=== PATIENT | female | born 1990 | race Caucasian/White ===

== ENCOUNTER 2017-03-03 20:36 | Outpatient (CLI) | payer OTHER ==
[~2017-03-03 20:36] MED LIST: BUTA1CAP38 PO; CALC600T5 PO; DOCO100C PO; IRON45TA2 PO; PREN1TAB17 PO; RANI25TA PO
--- NOTE | 2017-03-03 23:38 | RADRPT ---
PROCEDURE: Obstetrical ultrasound, limited. CLINICAL INDICATION: Pelvic pain. TECHNIQUE: Multiple sonographic images of the pelvis were obtained using transabdominal technique . Images were obtained with degroot scale and color Doppler. Transvaginal evaluation of the cervix was also performed. The images were reviewed on a PACS workstation. COMPARISON: 12/20/2016. FINDINGS: There is a single living intrauterine gestation with the fetus in a vertex presentation. hear t tones of 143 beats per minute are identified. The placenta is anterior in location, grade 1. The cervix is closed measuring 3.6 cm. IMPRESSION: Single viable intrauterine gestation. Cervical length of 3.6 cm. .Shon Ruvalcaba MD, Date Time Electronically viewed and signed by .Shon Ruvalcaba MD, MD on 03/03/2017 23:38 .T/
--- NOTE | 2017-03-04 00:21 | PN ---
Triage Information Date/Time Reason for visit: abdominal pressure x2wks with slight increase in sxs after 3yr-old's toy hit her abdomen Weeks of Gestation 32+2 /Para 2/1 Diabetes: none Hypertention: none Additional information Pt reports normal FM, denies LOF, VB or UCs Objective Heart Rate: 120's Heart Rate Comments mod jairon, +accels, no decels Contractions: >10 Minutes Apart (2UCs during monitoring) Exam Gen: pt well appearing, NAD Abd: soft, gravid, NT, no bruising or lesions noted Results/Medications Imaging Results PROCEDURE: Obstetrical ultrasound, limited. CLINICAL INDICATION: Pelvic pain. TECHNIQUE: Multiple sonographic images of the pelvis were obtained using transabdominal technique. Images were obtained with degroot scale and color Doppler. Transvaginal evaluation of the cervix was also performed. The images were reviewed on a PACS workstation. COMPARISON: 12/20/2016. FINDINGS: There is a single living intrauterine gestation with the fetus in a vertex presentation. heart tones of 143 beats per minute are identified. The placenta is anterior in location, grade 1. The cervix is closed measuring 3.6 cm. IMPRESSION: Single viable intrauterine gestation. Cervical length of 3.6 cm. PROCEDURE: Obstetrical ultrasound, limited. CLINICAL INDICATION: Injury and pain. TECHNIQUE: Multiple sonographic images of the pelvis were obtained using transabdominal technique. Images were obtained with degroot scale and color Doppler. The images were reviewed on a PACS workstation. COMPARISON: 03/03/2017. FINDINGS: There is a single intrauterine gestation. The placenta is anterior in location , grade 1. There is no evidence of placental abruption. IMPRESSION: No evidence of placental abruption. Disposition: Discharge Assessment/Plan MIld abdominal trauma w/o e/o PTL NST reactive TVCL >3cm Largely acontractile on toco with isolated contractions x2 U/S results d/w Dr. Quintana by fish cake maker and given d/c order Pt appropriate for d/c home Strict PTL, PPROM and FKC precautions reviewed Pt to f/up as scheduled with SHABNAM Flores MD Mar 04, 2017 00:21
--- NOTE | 2017-03-04 00:40 | RADRPT ---
PROCEDURE: Obstetrical ultrasound, limited. CLINICAL INDICATION: Injury and pain. TECHNIQUE: Multiple sonographic images of the pelvis were obtained using transabdominal technique . Images were obtained with degroot scale and color Doppler. [facility] COMPARISON: 03/03/2017. FINDINGS: There is a single intrauterine gestation. The placenta is anterior in location, grade 1. There is no evidence of placental abruption. IMPRESSION: No evidence of placental abruption. .Shon Ruvalcaba MD, Date Time Electronically viewed and signed by .Shon Ruvalcaba MD, MD on 03/04/2017 00:39 .T/
--- NOTE | 2017-03-04 01:46 | TRIAGE ---
OB Triage Datetime Report Generated by CPN: 03/04/2017 01:46 Datetime: 03/04/2017 00:27 Stage of : OB Triage Labor Evaluation Frequency: 0 Monitor Mode: External Resting Tone [place]: Relaxed Heart Rate FHR Baseline Rate: 120 Monitor Mode: External US Variability: Moderate 6-25 bpm Accelerations: 15X15 Decelerations: None Category: Category I Datetime: 03/04/2017 00:13 Stage of : OB Triage Datetime: 03/03/2017 23:45 Stage of : OB Triage Datetime: 03/03/2017 23:16 Stage of : OB Triage Monitor Mode: External Monitor Mode: External US Datetime: 03/03/2017 23:10 Stage of : OB Triage Datetime: 03/03/2017 22:43 Stage of : OB Triage Datetime: 03/03/2017 22:37 Stage of : OB Triage Labor Evaluation Frequency: X2 Monitor Mode: External Duration (sec)2399: 70-140 Quality: Mild Resting Tone [place]: Relaxed Heart Rate FHR Baseline Rate: 120 Monitor Mode: External US Variability: Moderate 6-25 bpm Accelerations: 15X15 Decelerations: None Category: Category I Datetime: 03/03/2017 22:11 Stage of : OB Triage Datetime: 03/03/2017 22:00 Stage of : OB Triage Labor Evaluation Frequency: 0 Monitor Mode: External Resting Tone [place]: Relaxed Heart Rate FHR Baseline Rate: 120 Monitor Mode: External US Variability: Moderate 6-25 bpm Accelerations: 15X15 Decelerations: None Category: Category I Datetime: 03/03/2017 21:37 Stage of : OB Triage Datetime: 03/03/2017 21:02 Assessment Type: Triage Maternal Assessment Level of Consciousness: Fully Conscious Headache: Denies Blurred Vision: No Respiratory Effort: Unlabored Breath Sounds, Left: Clear and Equal Breath Sounds, Right: Clear and Equal Nausea/Vomiting: Denies RUQ Epigastric Pain: Denies Lower Extremities Edema: None Degree: None Upper Extremities Edema: None Degree: None Facial Edema: None Fall Risk Assessment History of Falling: (0) No Secondary Diagnosis: (0) No Ambulatory Aid: (0) Bedrest/Nurse Assist IV Therapy: (0) No Gait: (0) Normal/Bedrest/Immobile Mental Status: (0) Oriented to Own Ability Fall Score: 0 Fall Risk Score Definition: No Risk: No action required Datetime: 03/03/2017 21:00 Time of Arrival: 03/03/2017 20:24 EGA: 32.2 Arrived By: Wheelchair Arrived From: Home Chief Complaint: Abd pain rt toddler jumped on her Movement: Present Rupture of Membranes: Denies Vaginal Bleeding: Scant Vaginal Discharge: Denies Recent Sexual Intercouse: Denies Abdominal Trauma: Not Applicable Patient Complaints: Other Additional Patient Complaints: Pt states she had placenta previa in December that was resolved by 01/13 0 Initial Plan: VS, EFM, placenta, cl, nst Datetime: 03/03/2017 20:53 Stage of : OB Triage Monitor Mode: External Contraction Comments: APPLIED Monitor Mode: External US Comments: APPLIED Datetime: 12/20/2016 11:30 Stage of : OB Triage Datetime: 12/20/2016 11:00 Stage of : OB Triage Maternal Assessment Level of Consciousness: Fully Conscious Headache: Generalized Nausea/Vomiting: Denies RUQ Epigastric Pain: Denies Labor Evaluation Frequency: IRRITABILITIES Monitor Mode: External Duration (sec)2399: 10 Quality: Mild Resting Tone [place]: Relaxed Pain Assessment Pain Scale: 3 Pain Presence: Constant Pain Type: Cramping; Pressure Pain Location: Abdomen Pain Goal: 2 Datetime: 12/20/2016 10:00 Stage of : OB Triage Maternal Assessment Level of Consciousness: Fully Conscious Headache: Generalized Nausea/Vomiting: Denies RUQ Epigastric Pain: Denies Labor Evaluation Frequency: IRRITABILITIES Monitor Mode: External Duration (sec)2399: 10 Quality: Mild Resting Tone [place]: Relaxed Pain Assessment Pain Scale: 5 Pain Presence: Constant Pain Type: Cramping; Pressure Pain Location: Abdomen (Annotations: BOTH SIDES OF ABDOMEN) Pain Relief Measures: Pain Medication Given (Annotations: GIVEN TYL 1 GM F`OR HEADACHE CAUSED BY S INUS ALLERGY /PT LEFT HER FIORICET AT HOME) Datetime: 12/20/2016 09:00 Stage of : OB Triage Maternal Assessment Level of Consciousness: Fully Conscious Headache: Denies Nausea/Vomiting: Denies RUQ Epigastric Pain: Denies Labor Evaluation Frequency: cramping mild Monitor Mode: External Duration (sec)2399: 10 Quality: Mild Resting Tone [place]: Relaxed Pain Assessment Pain Scale: 5 Pain Presence: Constant Pain Type: Cramping; Pressure Pain Location: PT POITS TO BOTH SIDES OF ABDOMEN Datetime: 12/20/2016 08:08 Stage of : OB Triage Maternal Assessment Level of Consciousness: Fully Conscious DTR's/Clonus: DTRs 2+; No Clonus Headache: Denies Blurred Vision: No Respiratory Effort: Unlabored; Regular Rhythm; Equal Expansion Breath Sounds, Left: Clear and Equal Breath Sounds, Right: Clear and Equal Nausea/Vomiting: Denies RUQ Epigastric Pain: Denies Lower Extremities Edema: None Degree: None Upper Extremities Edema: None Degree: None Facial Edema: None Temperature Route: Axillary Fall Risk Assessment History of Falling: (0) No Secondary Diagnosis: (0) No Ambulatory Aid: (0) Bedrest/Nurse Assist IV Therapy: (0) No Gait: (0) Normal/Bedrest/Immobile Mental Status: (0) Oriented to Own Ability Fall Score: 0 Fall Risk Score Definition: No Risk: No action required Labor Evaluation Frequency: cramping mild Monitor Mode: External Heart Rate FHR Baseline Rate: 136 Monitor Mode: External US Pain Assessment Pain Scale: 5 Pain Presence: Constant Pain Type: Cramping; Pressure Pain Location: both groin area and lower abd pain Datetime: 12/20/2016 08:07 EGA: 21.6 Datetime: 12/20/2016 08:05 Time of Arrival: 12/20/2016 08:05 Arrived By: Ambulatory Arrived From: Home Chief Complaint: spottin started at 0600 Movement: Present Rupture of Membranes: Denies Vaginal Discharge: Denies Recent Sexual Intercouse: Denies Abdominal Trauma: Not Applicable Time Provider Notified: 12/20/2016 08:24 Provider Notified: wilder Initial Plan: josee
== END 2017-03-04 01:08 | disposition home or self-care (01) ==
LOC: OBT 20:36 → L-D 20:39 → OBT 03-04 01:08
PROVIDERS: ATTEND Obstetrics & Gynecology
DX: O26.893 Other specified pregnancy related conditions, third trimester (principal); Z3A.32 32 weeks gestation of pregnancy
CPT/HCPCS: 76815; 76817; G0463

== ENCOUNTER 2017-04-02 19:00 | Outpatient (CLI) | payer OTHER ==
[~2017-04-02 19:00] MED LIST changes: -BUTA1CAP38 PO; -DOCO100C PO; -IRON45TA2 PO; -RANI25TA PO
--- NOTE | 2017-04-02 20:30 | RADRPT ---
PROCEDURE: US OB. CLINICAL INDICATION: Abdominal pain. TECHNIQUE: Multiple sonographic images of the pelvis were obtained. The images were reviewed on a PACS workstation. COMPARISON: 03/04/2017 and 03/03/2017 FINDINGS: There is a single viable intrauterine gestation. Cardiac activity is present with 113 beats per min phil. Measurements were made in order to determine age. The results are as follows: BPD =9.3 cm HC =33.4 cm AC =32.1 cm FL =7.4 cm. Estimated gestational age of approximately 37 weeks and 3 days. The estimated date of delivery is 04/20/2017. The EFW = 30 59 g . Limited by positioning. Visualized structures are normal. The placenta is anterior. There is no evidence for an abruption or placenta previa. IMPRESSION: Single viable intrauterine gestation of approximately 37 weeks and 3 days. RPTAT:AAJJ Physician Omar Date Time Electronically viewed and signed by Physician Omar on 04/02/2017 20:30 /
--- NOTE | 2017-04-02 20:31 | RADRPT ---
PROCEDURE: US OB biophysical profile. CLINICAL INDICATION: Abdominal pain TECHNIQUE: Multiple sonographic images of the pelvis were obtained. The images were reviewed on a PACS workstation. COMPARISON: 03/04/2017, 03/03/2017 FINDINGS: There is a viable intrauterine gestation. There is a normal amount of amniotic fluid with an MILLICENT = 19.0 cm. Cardiac activity is present with 132 beats per minute. The placenta is anterior. No evidence of placenta previa or abruption. Biophysical profile: movement 2/2 tone 2/2. breathing 2/2 MILLICENT 2/2 Total 01/20 IMPRESSION: Normal biophysical profile. RPTAT:AAJJ Physician Omar Date Time Electronically viewed and signed by Physician Omar on 04/02/2017 20:31 /
--- NOTE | 2017-04-02 21:14 | PN ---
Triage Information Date/Time April 02, 2017. Reason for visit: DFM Weeks of Gestation 36w 4d /Para 2/1 Diabetes: none Hypertention: none Additional information PMHx: none. PSHx: none. NKDA. Objective T=98 BP 106/61 Heart Rate: 120's Heart Rate Comments Accels to 145 bpm. No decels. Contractions: >10 Minutes Apart Exam 30%/FT/-3 Results/Medications Imaging Results BPP 8/8 with an MILLICENT of 19.0 VTX. EFW 3059 grams. Anterior placenta. Disposition: Discharge Assessment/Plan A: IUP at 36w 4d. Decreased movement. False labor. P: D/C home. Keep appt with Dr Quintana 04/09, as scheduled. MENDEZ ABREU MD Apr 02, 2017 21:14
[2017-04-02 21:17] LABS: ADD UMIC NO; UR ASCORBIC ACID NEGATIVE (NEGATIVE); UR BILIRUBIN (Dip) NEGATIVE (NEGATIVE); UR BLOOD (Dip) NEGATIVE (NEGATIVE); UR CLARITY CLEAR (CLEAR); UR COLOR YELLOW (YELLOW); UR GLUCOSE (Dip) NEGATIVE (NEGATIVE); UR KETONES (Dip) NEGATIVE (NEGATIVE); UR LEUKOCYTE ESTERASE (Dip) NEGATIVE Leu/ul (NEGATIVE); UR NITRITE (Dip) NEGATIVE (NEGATIVE); UR SPECIFIC GRAVITY (Dip) 1.024 (1.003-1.030); UR TOTAL PROTEIN (Dip) NEGATIVE (NEGATIVE); UR UROBILINOGEN (Dip) NEGATIVE (NEGATIVE)
--- NOTE | 2017-04-02 21:53 | TRIAGE ---
OB Triage Datetime Report Generated by CPN: 04/02/2017 21:53 Datetime: 04/02/2017 20:43 Stage of : OB Triage Labor Evaluation Frequency: 30 Monitor Mode: External Duration (sec)2399: 60 Quality: Mild Pattern: Normal: <= 5 Contractions in 10 Minutes Resting Tone [place]: Relaxed Heart Rate FHR Baseline Rate: 125 Monitor Mode: External US FHR Baseline Changes: No Baseline Change Variability: Moderate 6-25 bpm Accelerations: 15X15 Decelerations: None Category: Category I Pain Presence: Intermittent Pain Type: Contraction Pain Location: Abdomen Vaginal Exam Dilatation (cms): 0.5 Effacement (%): 30 Station: -3 Exam By: Julio Villagran Membrane Status: Intact Vaginal Bleeding: None Cervix, Consistency: Soft Cervix, Position: Posterior Presentation 'A': Cephalic Datetime: 04/02/2017 19:32 Stage of : OB Triage Monitor Mode: External Pattern: Normal: <= 5 Contractions in 10 Minutes Resting Tone [place]: Relaxed Heart Rate FHR Baseline Rate: 135 Monitor Mode: External US Pain Assessment Pain Scale: 4 Pain Presence: Intermittent Pain Type: Cramping Pain Location: Abdomen Datetime: 04/02/2017 19:13 Stage of : OB Triage Assessment Type: Triage Maternal Assessment Level of Consciousness: Fully Conscious DTR's/Clonus: DTRs 2+; No Clonus Headache: Denies Blurred Vision: No Respiratory Effort: Unlabored; Regular Rhythm; Equal Expansion Breath Sounds, Left: Clear and Equal Breath Sounds, Right: Clear and Equal Nausea/Vomiting: Denies RUQ Epigastric Pain: Denies Lower Extremities Edema: Bilateral Lower Extremities Degree: 1+ Upper Extremities Edema: None Facial Edema: None Temperature Route: Axillary Fall Risk Assessment History of Falling: (0) No Secondary Diagnosis: (0) No Ambulatory Aid: (0) Bedrest/Nurse Assist IV Therapy: (0) No Gait: (0) Normal/Bedrest/Immobile Mental Status: (0) Oriented to Own Ability Fall Score: 0 Fall Risk Score Definition: No Risk: No action required Labor Evaluation Frequency: 0 Monitor Mode: External Resting Tone [place]: Relaxed Monitor Mode: External US Pain Assessment Pain Scale: 4 Pain Presence: Intermittent Pain Type: Cramping; Contraction Pain Location: Abdomen Pain Goal: 3 Pain Relief Measures: Comfort Measures Datetime: 04/02/2017 19:10 Time of Arrival: 04/02/2017 19:00 EGA: 36.4 Arrived By: Ambulatory Arrived From: Office Chief Complaint: SENT FROM OFFICE FOR EVALUATION OF UC/S, DFM. BPP/EFW ORDERED. SPOTTING, DENIES L EAKING, UC'S Q MIN Movement: Decreased Contractions: Irregular Contractions: 5-10 Rupture of Membranes: Denies Vaginal Discharge: Present Recent Sexual Intercouse: Denies Abdominal Trauma: Not Applicable Time Provider Notified: 04/02/2017 20:52 Provider Notified: Dr Quintana Initial Plan: MONITOR, BPPEFW Datetime: 03/03/2017 21:02 Fall Score: 0 Fall Risk Score Definition: No Risk: No action required Datetime: 03/03/2017 21:00 EGA: 32.2 Datetime: 12/20/2016 08:08 Fall Score: 0 Fall Risk Score Definition: No Risk: No action required Datetime: 12/20/2016 08:07 EGA: 21.6
== END 2017-04-02 21:22 | disposition home or self-care (01) ==
LOC: OBT 19:00 → L-D 19:01 → OBT 21:22
PROVIDERS: ATTEND Obstetrics & Gynecology
DX: O36.8130 Decreased fetal movements, third trimester, not applicable or unspecified (principal); O60.03 Preterm labor without delivery, third trimester; Z3A.36 36 weeks gestation of pregnancy
CPT/HCPCS: 76815; 76818; 81003; Z7500; G0463

== ENCOUNTER 2017-04-09 09:31 | Outpatient (CLI) | payer OTHER ==
[~2017-04-09] VITALS: Ht 162.6 cm; Wt 86.4 kg
[2017-04-09 10:08] VITALS: Ht 162.6 cm; Wt 86.4 kg
[2017-04-09] MEDS ORDERED: FERR325T5 PO (10:08)
[2017-04-09] MEDS ORDERED: MAGN400T27 PO (10:08)
[2017-04-09] MEDS ORDERED: DOXY25TA33 PO (10:08)
[2017-04-09 10:09] VITALS: BP 106/68; PULSE 97; RESP 18
--- NOTE | 2017-04-09 10:49 | RADRPT ---
PROCEDURE: OB ultrasound for biophysical profile CLINICAL INDICATION: Decreased movement TECHNIQUE: Multiple sonographic images of the pelvis were obtained. Transabdominal views of the g ravid uterus are available for review. The images were reviewed on a PACS workstation. COMPARISON: Biophysical profile dated 04/02/2017 FINDINGS: breathing movement = 2/2 tone = 2/2 motion = 2/2 MILLICENT = 2/2 MILLICENT = 17.8 cm Single live intrauterine with cardiac activity of 134 bpm. position is cephal ic. The placenta is anterior. IMPRESSION: 1. Single live intrauterine gestation. 2. Biophysical profile = 01/20. 3. MILLICENT = 17.8 cm. RPTAT: HH .Cookie Aguirre MD, Date Time Electronically viewed and signed by .Cookie Aguirre MD, on 04/09/2017 10:48 .G/
--- NOTE | 2017-04-09 11:21 | TRIAGE ---
OB Triage Datetime Report Generated by CPN: 04/09/2017 11:21 Datetime: 04/09/2017 10:37 Stage of : OB Triage Maternal Assessment Level of Consciousness: Fully Conscious Labor Evaluation Frequency: NONE Monitor Mode: External Resting Tone [place]: Relaxed Heart Rate FHR Baseline Rate: 125 Monitor Mode: External US Variability: Moderate 6-25 bpm Accelerations: 15X15 Decelerations: None Category: Category I Pain Assessment Pain Scale: 0 Pain Goal: 3 Vaginal Exam Membrane Status: Intact Vaginal Bleeding: None Datetime: 04/09/2017 10:02 Time of Arrival: 04/09/2017 09:16 EGA: 37.4 Arrived By: Ambulatory Arrived From: Home Chief Complaint: PT HERE FOR REPEAT NST/BPP FOR DFM Movement: Present Contractions: Denies/Absent Rupture of Membranes: Denies Vaginal Bleeding: None Vaginal Discharge: Denies Recent Sexual Intercouse: Denies Abdominal Trauma: Not Applicable Patient Complaints: None Time Provider Notified: 04/09/2017 11:15 Provider Notified: ABUSLEME Initial Plan: BPP/NST Datetime: 04/09/2017 09:59 Monitor Mode: External Monitor Mode: External US Datetime: 04/02/2017 21:09 Stage of : OB Triage Datetime: 04/02/2017 21:00 Stage of : OB Triage Datetime: 04/02/2017 19:13 Fall Risk Assessment Fall Score: 0 Fall Risk Score Definition: No Risk: No action required Datetime: 04/02/2017 19:10 EGA: 36.4 Datetime: 03/03/2017 21:02 Fall Risk Assessment Fall Score: 0 Fall Risk Score Definition: No Risk: No action required Datetime: 03/03/2017 21:00 EGA: 32.2 Datetime: 12/20/2016 08:08 Fall Risk Assessment Fall Score: 0 Fall Risk Score Definition: No Risk: No action required Datetime: 12/20/2016 08:07 EGA: 21.6
--- NOTE | 2017-04-09 11:43 | CONS ---
Date/Time of Note Date/Time of Note DATE: 04/09/17 TIME: 11:37 Consultation Date/Type/Reason Admit Date/Time April 09, 2017 OB triage consult This patient is 26 years old 2 para 1 living 1 with 1 spontaneous vaginal delivery her estimated date of confinement is April 27, 2017 which makes her 37 weeks and 4 days now. She was sent to the OB triage for evaluation of her due to low movement. On examination she is a well-developed well-nourished lady near- term in no acute distress. Her general vital signs are within normal limits with blood pressure 106/68 pulse rate of 97, respiration 18, temperature 97.8 in the blood oxygen saturation of 98% on room temperature Her lab works in the clinic were mostly within normal limit blood type O+ hepatitis B surface antigen nonreactive HIV nonreactive RPR also nonreactive rubella immune Chlamydia and gonorrhea were negative Constitutional: No chills, No diaphoresis, No disoriented, No febrile, No improved, No no complaints, No other, No poor po, No requiring IVF, No requiring O2 Eyes: No discharge, No no complaints, No other, No pain, No redness, No visual change ENT: No bleeding, No congestion, No discharge, No dysphagia, No no complaints, No other, No pain, No sore throat Respiratory: No cough, No no complaints, No other, No pain, No pleuritic pain, No shortness of breath, No sputum, No wheezing Cardiovascular: No chest pain, No edema, No lightheadedness, No no complaints, No orthopenea, No other, No palpitations, No paroxysmal nocturnal dyspnea Gastrointestinal: No blood, No constipation, No decreased appetite, No diarrhea , No flatus, No nausea, No no complaints, No other, No pain, No passing stool, No vomiting Genitourinary: other (Pelvic examination was not performed due to the fact that she did not have any contractions), No bleeding, No discharge, No dysuria, No flank pain, No hematuria, No no complaints Musculoskeletal: No back pain, No bone/joint pain, No neck pain, No no complaints, No other, No restricted range of motion, No swelling Skin: No bruising, No erythema, No laceration, No no complaints, No other, No pruritis, No rash, No skin lesions Additional Comments On ultrasound study report is a single live intrauterine with cardiac activity 134 bpm position is cephalic and placenta is anterior her biophysical profile was reported 01/20 with amniotic fluid index of 17.8 cm. With these normal finding patient was reassured and was discharged home to be evaluated in manager market 's office and she will most likely return in 1 week to repeat some of the tests that we done today. End of dictation thank you Social History Smoking Status: Never smoker Exam/Review of Systems Vital Signs Vitals Vital Signs Date Time Temp Pulse Resp B/P Pulse Ox O2 Delivery O2 Flow Rate FiO2 04/09/17 10:09 97.8 97 18 106/68 98 Room Air OLU BERNSTEIN MD Apr 09, 2017 11:43
== END 2017-04-09 11:39 | disposition home or self-care (01) ==
LOC: OBT 09:31 → L-D 09:31 → OBT 11:39
PROVIDERS: ATTEND Obstetrics & Gynecology
DX: O36.8130 Decreased fetal movements, third trimester, not applicable or unspecified (principal); Z3A.37 37 weeks gestation of pregnancy
CPT/HCPCS: 76818; Z7500; G0463

== ENCOUNTER 2017-04-13 10:08 | Outpatient (CLI) | payer OTHER ==
[~2017-04-13 10:08] MED LIST changes: -CALC600T5 PO; +DOXY25TA33 PO; +FERR325T5 PO; +MAGN400T27 PO
[2017-04-13 10:55] LABS: BASOPHIL # 0.1 10^3/ul (0.0-0.1); BASOPHILS % 0.6 % (0.0-2.0); EOSINOPHILS # 0.1 10^3/ul (0.0-0.5); EOSINOPHILS % 1.5 % (0.0-7.0); HEMOGLOBIN 13.4 g/dl (12.0-16.0); LYMPHOCYTES # 1.9 10^3/ul (0.8-2.9); LYMPHOCYTES % 22.1 % (15.0-51.0); MEAN CORPUSCULAR HEMOGLOBIN 31.2 pg (29.0-33.0); MEAN CORPUSCULAR HGB CONC 35.3 g/dl (32.0-37.0); MEAN CORPUSCULAR VOLUME 88.4 fl (82.0-101.0); MEAN PLATELET VOLUME 10.8 fl (7.4-10.4); MONOCYTES % 11.1 % (0.0-11.0); NEUTROPHIL # 5.6 10^3/ul (1.6-7.5); NEUTROPHILS % 63.4 % (39.0-77.0); PLATELET COUNT 186 10^3/UL (140-415); RED CELL DISTRIBUTION WIDTH 13.1 % (11.5-14.5); WHITE BLOOD COUNT 8.8 10^3/ul (4.8-10.8)
--- NOTE | 2017-04-13 11:16 | RADRPT ---
PROCEDURE: Right Upper Quadrant Ultrasound. CLINICAL INDICATION: Abdominal pain, TECHNIQUE: Multiple real-time images were acquired of the patient's right upper quadrant abdomen a nd retroperitoneum utilizing a high resolution transducer. COMPARISON: None FINDINGS: The liver measures 14.4 cm, and demonstrates normal echogenicity. The main portal vein is patent wit h proper directional flow. There is no intrahepatic biliary ductal dilatation. The extrahepatic comm on bile duct measures 3 mm. The gallbladder is without stones, wall thickening, or pericholecystic fluid. The visualized pancreas is unremarkable. The right kidney measures 10.9 cm and demonstrates normal echotexture. There is mild right hydroneph rosis.. The visualized abdominal aorta and IVC are grossly unremarkable. IMPRESSION: Mild right hydronephrosis. This may be physiologic due to the gravid uterus. No cholelithiasis or acute cholecystitis. Normal CBD. RPTAT: EE Physician Raj Date Time Electronically viewed and signed by Physician Raj on 04/13/2017 11:15 /
[2017-04-13 11:17] LABS: ALBUMIN 3.1 g/dl (3.3-4.9); ALBUMIN/GLOBULIN RATIO 0.79; BILIRUBIN,INDIRECT 0.5 mg/dl (0-1.1); BILIRUBIN,TOTAL 0.5 mg/dl (0.2-1.3); CALCIUM 9.2 mg/dl (8.4-10.2); CREATININE 0.5 mg/dl (0.44-1.00); URIC ACID 3.4 mg/dl (3.1-7.9)
--- NOTE | 2017-04-13 11:17 | RADRPT ---
PROCEDURE: US OB biophysical profile. CLINICAL INDICATION: evaluation, abdominal pain TECHNIQUE: Multiple sonographic images of the pelvis were obtained. The images were reviewed on a PACS workstation. COMPARISON: No prior studies are available for comparison. FINDINGS: There is a single viable intrauterine gestation. Cardiac activity is present with 131 beats per min phil. There is a vertex presentation. The placenta is anterior. There is no evidence of placental abruption. There is a normal amount of amniotic fluid with an MILLICENT = 14.7 cm. Biophysical profile: movement 2/2 tone 2/2. breathing 2/2 MILLICENT 2/2 Total 01/20 RPTAT: AA . IMPRESSION: Normal biophysical profile. Physician Raj Date Time Electronically viewed and signed by Physician Raj on 04/13/2017 11:16 RA/
[2017-04-13 11:19] LABS: INR 0.96; PROTIME 12.8 Sec (12.2-14.2)
[2017-04-13 11:20] LABS: PARTIAL THROMBOPLASTIN TIME 31.5 Sec (25.0-35.0)
[2017-04-13 11:49] LABS: SCRET 0.5 mg/dl (0.44-1.00)
--- NOTE | 2017-04-13 14:26 | TRIAGE ---
OB Triage Datetime Report Generated by CPN: 04/13/2017 14:26 Datetime: 04/13/2017 12:33 Stage of : OB Triage Datetime: 04/13/2017 12:30 Stage of : OB Triage Datetime: 04/13/2017 12:13 Labor Evaluation Frequency: 0 Monitor Mode: External Resting Tone [place]: Relaxed Heart Rate FHR Baseline Rate: 125 Monitor Mode: External US Variability: Moderate 6-25 bpm Accelerations: 10X10 Decelerations: None Category: Category I Pain Assessment Pain Scale: 2 Pain Presence: Constant Pain Type: Ache Pain Location: Abdomen Pain Goal: 3 Pain Relief Measures: Comfort Measures Datetime: 04/13/2017 11:09 Labor Evaluation Frequency: x1 Monitor Mode: External Duration (sec)2399: 60 Quality: Mild Resting Tone [place]: Relaxed Heart Rate FHR Baseline Rate: 135 Monitor Mode: External US Variability: Moderate 6-25 bpm Accelerations: 10X10 Decelerations: None Category: Category I Pain Assessment Pain Scale: 2 Pain Presence: Constant Pain Type: Ache Pain Location: Abdomen Pain Goal: 3 Pain Relief Measures: Comfort Measures Datetime: 04/13/2017 10:22 Stage of : OB Triage Assessment Type: Triage Maternal Assessment Level of Consciousness: Fully Conscious DTR's/Clonus: DTRs 2+; No Clonus Headache: Denies Blurred Vision: No Respiratory Effort: Unlabored; Regular Rhythm; Equal Expansion Breath Sounds, Left: Clear and Equal Breath Sounds, Right: Clear and Equal Nausea/Vomiting: Denies RUQ Epigastric Pain: Denies Facial Edema: None Temperature Route: Axillary Fall Risk Assessment History of Falling: (0) No Secondary Diagnosis: (0) No Ambulatory Aid: (0) Bedrest/Nurse Assist IV Therapy: (0) No Gait: (0) Normal/Bedrest/Immobile Mental Status: (0) Oriented to Own Ability Fall Score: 0 Fall Risk Score Definition: No Risk: No action required Labor Evaluation Frequency: 0 Monitor Mode: External Resting Tone [place]: Relaxed Heart Rate FHR Baseline Rate: 125 Monitor Mode: External US Variability: Moderate 6-25 bpm Decelerations: None Pain Assessment Pain Scale: 2 Pain Presence: Constant Pain Type: Ache Pain Location: Abdomen (Annotations: RUQ) Pain Goal: 3 Pain Relief Measures: Comfort Measures Datetime: 04/13/2017 10:21 Time of Arrival: 04/13/2017 10:00 EGA: 38.1 Arrived By: Ambulatory Arrived From: Home Chief Complaint: REFERRED FROM DR OFFICE, RETURNING 24 HOUR URINE, RUQ PAIN, DENIES BLEEDING, LEAK ING, OR UC'S Movement: Present Contractions: Denies/Absent Rupture of Membranes: Denies Vaginal Bleeding: None Vaginal Discharge: Denies Recent Sexual Intercouse: Denies Abdominal Trauma: Not Applicable Initial Plan: MONITOR, PIH PANEL, BPP/MILLICENT, ABDOMINAL U/S Datetime: 04/09/2017 10:02 EGA: 37.4 Datetime: 04/02/2017 19:13 Fall Score: 0 Fall Risk Score Definition: No Risk: No action required Datetime: 04/02/2017 19:10 EGA: 36.4 Datetime: 03/03/2017 21:02 Fall Score: 0 Fall Risk Score Definition: No Risk: No action required Datetime: 03/03/2017 21:00 EGA: 32.2 Datetime: 12/20/2016 08:08 Fall Score: 0 Fall Risk Score Definition: No Risk: No action required Datetime: 12/20/2016 08:07 EGA: 21.6
--- NOTE | 2017-04-13 18:24 | QN ---
Documentation Comment iup 38 weeks co of ucx vss exam wnl nst wnl a/p iup 38 weeks false labor [facility] NITZA GARCIA MD Apr 13, 2017 18:24
== END 2017-04-13 14:12 | disposition home or self-care (01) ==
LOC: L-D 10:08 → OBT 10:08
PROVIDERS: ATTEND Obstetrics & Gynecology
DX: O62.9 Abnormality of forces of labor, unspecified (principal); Z3A.38 38 weeks gestation of pregnancy
CPT/HCPCS: 36415; 76705; 76818; 80053; 82575; 84156; 84560; 85025; 85384; 85610; 85730; Z7500; G0463

== ENCOUNTER 2017-04-14 08:00 | Inpatient (IN) | payer OTHER ==
[~2017-04-14] VITALS: Ht 162.6 cm; Wt 86.6 kg
[2017-04-14] MEDS ORDERED: METHYLERGONOVINE 0.2 MG INJ IM PRN ×2 (09:00→23:00)
[2017-04-14] MEDS ORDERED: CARBOPROST 250 MCG INJ IM PRN ×2 (09:00→23:00)
[2017-04-14] MEDS ORDERED: AMPICILLIN 2 GM/NS (PMX) 100 ML IV ONE (09:00)
[2017-04-14] MEDS ORDERED: IBUPROFEN 600 MG TAB PO PRN (09:00)
[2017-04-14] MEDS ORDERED: LIDOCAINE 1% (MPF) 30 ML INJ INJ PRN (09:00)
[2017-04-14] MEDS ORDERED: MISOPROSTOL 200 MCG TAB PR PRN ×2 (09:00→23:00)
[2017-04-14] MEDS ORDERED: OXYTOCIN 30 UNITS/LR 500 ML IV PRN ×2 (09:00→23:00)
[2017-04-14] MEDS ORDERED: OXYTOCIN 30 UNITS/LR 500 ML IV SCH ×2 (09:00)
[2017-04-14] MEDS ORDERED: BUTORPHANOL 2 MG INJ IV PRN (09:00)
[2017-04-14 09:05] VITALS: Ht 162.6 cm; Wt 86.6 kg
[2017-04-14 09:06] VITALS: BP 101/61; PULSE 106; RESP 20
[2017-04-14] MEDS: LACTATED RINGER'S 1,000 ML IV SCH ×2 (09:18→17:00)
[2017-04-14] MEDS ORDERED: DINOPROSTONE 10 MG VAG SUPP VAG ONE (10:30)
[2017-04-14] MEDS: AMPICILLIN 1 GM/NS (PMX) 50 ML IV SCH ×3 (12:50→20:59)
[2017-04-14] MEDS: LACTATED RINGER'S 1,000 ML IV PRN ×2 (15:18→16:04)
[2017-04-14] MEDS ORDERED: FENTAnyl 2MCG/ML-ROPIV 0.2% 100 ML ONE (15:39)
[2017-04-14] MEDS ORDERED: DIPHENHYDRAMINE 50 MG INJ IV PRN (17:30)
[2017-04-14] MEDS ORDERED: NALOXONE (0.4 MG/ML) INJ IV PRN (17:30)
[2017-04-14] MEDS ORDERED: FENTAnyl 2MCG/ML-ROPIV 0.2% 100 ML BAG EPI SCH (17:30)
[2017-04-14] MEDS ORDERED: ONDANSETRON 4 MG INJ IV PRN ×2 (17:30→23:00)
[2017-04-14] MEDS ORDERED: TRIMETHOBENZAMIDE 100 MG/ML VIAL IM PRN (17:30)
[2017-04-14] MEDS ORDERED: DEXTROSE 5%-LR 1,000 ML IV SCH (19:00)
--- NOTE | 2017-04-14 22:50 | HP ---
Date/Time of Note Date/Time of Note DATE: 04/14/17 TIME: 22:41 OB - History Hx of Present Last Menstrual Period: Jul 23, 2016 Estimated Due Date: Apr 27, 2017 : 2 Para: 1 Care: Good Care Ultrasounds: Normal mid trimester US Obstetrical Complications: Pre-eclampsia Medical Complications: None Past Family/Social History * Past Medical, Surgical, Family and Obstetric Histories reviewed from chart. Blood Type: O- Rubella: immune RPR/VDRL: Negative GBS Status: Positive HBsAG: Negative OB Admission Exam Vital Signs Vital Signs Vital Signs Date Time Temp Pulse Resp B/P Pulse Ox O2 Delivery O2 Flow Rate FiO2 04/14/17 09:06 98.0 106 20 101/61 Room Air Physical Exam HEENT: WNL Heart: Rhythm Normal Lungs: Clear, Equal Abdomen: WNL Extremities: Normal Reflexes: Normal Cervical Dilatation: 1cm Effacement: 50% Station: -3 Membranes: Intact Heart Rate: 120's Accelerations: Accelerations Present Decelerations: No Decelerations Varibility: Moderate Contractions on Admission: >10 Minutes Apart Intensity: Mild Last 72 hours Lab Results CBC & BMP 04/14/17 09:15 04/14/17 09:30 Liver Function Test 04/14/17 09:15 Alanine Aminotransferase (ALT/SGPT) 32 Albumin 3.1 L Alkaline Phosphatase 120 Aspartate Amino Transf (AST/SGOT) 24 Direct Bilirubin 0.00 Total Protein 7.0 OB Assessment/Plan Reason for admission: group B positive strep, induction of labor Other Assessment: preeclampsia Plan: Induction Induction Method: per Pitocin Protocol Other plan: delivery MAX SHAH MD Apr 14, 2017 22:50
--- NOTE | 2017-04-14 22:55 | LDN ---
Date/Time of Note Date/Time of Note DATE: 04/14/17 TIME: 22:50 Delivery Summary Weeks of Gestation 38 weeks preeclampsia induction of labor spontaneous vaginal delivery baby boy 8-9 no lacerations . no bleeding Placenta Delivered: Spontaneously Meconium: none Episiotomy: No Anesthesia type: Epidural Sponge & Needle done & correct: Yes All needle counts correct: Yes Any foreign bodies felt in the: No Problems: Delivery Information Sex Sex: male Apgars 1 Minute: 8 5 Minute: 9 Suctioning Nose & mouth suctioned at glenn: Yes Delee suction performed: No Umbilical Cord Umbilical cord with: 3 Vessels Cord presentations: no nuchal cord Cord Blood was obtained: Yes Mother & Baby Disposition Disposition Mom & Baby to Maternity; Good: Yes MAX SHAH MD Apr 14, 2017 22:55
[2017-04-14] MEDS ORDERED: NA PHOSPHATE/BIPHOS 133 ML ENEMA PR PRN (23:00)
[2017-04-14] MEDS ORDERED: DIBUCAINE 1% 30 GM OINT PR PRN (23:00)
[2017-04-14] MEDS ORDERED: DIPHENHYDRAMINE 25 MG CAP PO PRN (23:00)
[2017-04-14] MEDS ORDERED: HYDROCODONE/APAP (5/325) TAB PO PRN ×2 (23:00)
[2017-04-14] MEDS ORDERED: ACETAMINOPHEN 325 MG TAB PO PRN ×2 (23:00)
[2017-04-14] MEDS ORDERED: SENNA/DOCUSATE NA (8.6MG/50MG) TAB PO PRN (23:00)
[2017-04-14] MEDS ORDERED: ZOLPIDEM 5 MG TAB PO PRN (23:00)
[2017-04-14] MEDS ORDERED: LANOLIN 7 GM TUBE TOP PRN (23:00)
--- NOTE | 2017-04-14 23:16 | DELSUM ---
Delivery Summary A-C Datetime Report Generated by CPN: 04/14/2017 23:16 DELIVERY PERSONNEL Counterintelligence Agent: Naidu, Juliana MATERNAL INFORMATION Delivery Anesthesia: Epidural Medications in Delivery: pitocin Estimated Blood Loss (ml): 200 Placenta Cultured: No Maternal Complications: Other Other Maternal Complications: TOTAL PROTEIN 336 LABOR SUMMARY EDC: 04/26/2017 00:00 No. Babies in Womb: 1 Attempted: No Labor Anesthesia: Epidural LABOR INFORMATION Reason for Induction: Gest. HTN/PreEclam/Eclamp Reason for Induction- Other: TOTAL PROTEIN 336 Onset of Labor: 04/14/2017 18:00 Complete Dilatation: 04/14/2017 22:00 Cervical Ripening Agents: Cervidil Oxytocin: N/A Group B Beta Strep: Positive Antibiotics # of Doses: 4 Antibiotics Time of Last Dose: 04/14/2017 21:00 Steroids Given: None Reason Steroids Not Administered: Not Applicable MEMBRANES Membranes Rupture Method: Artificial Rupture of Membranes: 04/14/2017 19:58 Length of Rupture (hr): 2.45 Amniotic Fluid Color: Clear Amniotic Fluid Amount: Large Amniotic Fluid Odor: None STAGES OF LABOR Stage 1 hr: 4 Stage 1 min: 0 Stage 2 hr: 0 Stage 2 min: 25 Stage 3 hr: 0 Stage 3 min: 2 Total Time in Labor hr: 4 Total Time in Labor min: 27 VAGINAL DELIVERY Episiotomy: None Laceration Extension: N/A Laceration Type: None Laceration Repair: Not Applicable Initial Vag Sponge Count: 10 Final Vag Sponge Count: 10 Initial Vag Sharps Count: 1 Final Vag Sharps Count: 1 Sponge Count Correct: Yes Sharps Count Correct: Yes BABY A INFORMATION Delivery Date/Time: 04/14/2017 22:25 Method of Delivery: Vaginal Born in Route : No : N/A Forceps: N/A Vacuum Extraction: N/A Shoulder Dystocia : N/A SHOULDER DYSTOCIA BABY A Infant Delivery Date/Time: 04/14/2017 22:25 PRESENTATION/POSITION BABY A Presentation: Cephalic Cephalic Presentation: Vertex Vertex Position: Left Occipital Anterior Breech Presentation: N/A PLACENTA INFORMATION BABY A Placenta Delivery Time : 04/14/2017 22:27 Placenta Method of Delivery: Spontaneous Placenta Status: Delivered SCORES BABY A Heart Rate 1 min: >100 bpm Resp Effort 1 min: Good Cry Reflex Irritability 1 min: Cough/Sneeze/Pulls Away Muscle Tone 1 min: Some Flexion of Extrem Color 1 min: Body [place], Extremit Blue Resuscitation Effort 1 min: Tactile Stimulation; PPV/NCPAP SCORE 1 MIN: 8 Heart Rate 5 min: >100 bpm Resp Effort 5 min: Good Cry Reflex Irritability 5 min: Cough/Sneeze/Pulls Away Muscle Tone 5 min: Active Motion Color 5 min: Body [place], Extremit Blue Resuscitation Effort 5 min: Tactile Stimulation; PPV/NCPAP SCORE 5 MIN: 9 INFORMATION BABY A Gestational Age at Delivery: 38.2 Gestational Status: Early Term- 37- 38.6 Weeks Infant Outcome : Liveborn Condition : Stable Infant Sex: Male IDENTIFICATION/MEDS BABY A ID Band Number: [id number] ID Band Location: Right Leg; Left Arm Sensor Applied: Yes Sensor Number: [id number] Sensor Location : Cord Clamp Vitamin K Given : Not Given Erythromycin Given: Not Given WEIGHT/LENGTH BABY A Infant Birthweight (gm): 3000 Infant Weight (lb): 6 Weight (oz): 10 Length (in): 19.50 Infant Length (cm): 49.53 CORD INFORMATION BABY A No. Cord Vessels: 3 Nuchal Cord : N/A Cord Blood Taken: Yes Infant Suction: Mouth; Nose ASSESSMENT BABY A Infant Complications: Decreased Variability Physical Findings at Delivery: Other Physical Findings- Other: BOTH ARMS FLACCID AT TIMES Respirations: Grunting Making Machine Operator/ALS Called : Yes Infant Care By: Ralph MEJIA Transferred To: Remains with Mother
[2017-04-15 00:45] VITALS: BP_SYST 100; BP_SYST 111; BP_DIAS 52; BP_DIAS 55; PULSE 94; PULSE 96; RESP 18
[2017-04-15] MEDS: IBUPROFEN 800 MG TAB PO SCH ×4 (01:14→17:27)
[2017-04-15] MEDS: LACTATED RINGER'S 1,000 ML IV* SCH ×2 (02:57→06:55)
[2017-04-15 03:52] VITALS: BP 103/66; PULSE 60; RESP 18
[2017-04-15 07:50] VITALS: BP 99/52; PULSE 77; RESP 18
--- NOTE | 2017-04-15 10:42 | PN ---
Date/Time of Note Date/Time of Note DATE: 04/15/17 TIME: 10:41 OB Subjective Subjective Subjective DOING WELL AFEBRILE UTERUS CONTRACTED LOCHIA NORMAL STABLE VITAL SIGNS BREAST FEEDING OB Objective HEENT: WNL Heart: Rhythm Normal Lungs: Clear, Equal Abdomen: WNL Extremities: Normal Reflexes: Normal OB Assessment/Plan Reason for admission: induction of labor MAX SHAH MD Apr 15, 2017 10:42
[2017-04-15] MEDS: MAGNESIUM OXIDE 400 MG TAB PO SCH (11:11)
[2017-04-15 16:00] VITALS: BP 102/55; PULSE 72; RESP 18
[2017-04-15 20:00] VITALS: BP 110/68; PULSE 83; RESP 20
[2017-04-16] MEDS: IBUPROFEN 800 MG TAB PO SCH ×3 (00:20→12:16)
[2017-04-16 04:00] VITALS: BP 104/73; PULSE 78; RESP 20
[2017-04-16 07:45] VITALS: BP 93/68; PULSE 66; RESP 16
[2017-04-16] MEDS ORDERED: DIPHTH/TET/ACEL PERTUSS (ADULT) 0.5 ML VIAL IM* ONE (09:00)
[2017-04-16] MEDS ORDERED: VARICELLA VACCINE LIVE/PF 1,350 UNIT/0.5 ML ML SC* ONE (09:00)
[2017-04-16] MEDS ORDERED: MEASLES,MUMPS,RUBELLA VACCINE INJ SC* ONE (09:00)
[2017-04-16] MEDS: MAGNESIUM OXIDE 400 MG TAB PO SCH (09:11)
--- NOTE | 2017-04-16 11:15 | PD.PPDC ---
HAIRCUTTER Discharge Instruction Condition Patient Condition: Good Diet Diet: Resume Regular Diet Activity/Restrictions Activity: Normal Activity May Shower Restrictions: No Exercising No Lifting No Driving No Sexual Activity Nothing in the Vagina No [place] No Tampons, douche Follow-up Follow-up with Physician: 6, Week/Weeks Return to clinic for BIOMEDICAL INSTRUMENT TECHNICIAN Instructions: Fever greater than 101 Chills Worsening abdominal pain Excessive Vaginal Bleeding More than 2 pads per hour Unable to tolerate diet OB Instructions: Breast Tenderness Depression Blurried Vision Headache Surgical Instructions: Incisional Drainage Incisional Redness MAX SHAH MD Apr 16, 2017 11:15
--- NOTE | 2017-04-16 11:15 | PD.PPDC ---
PROCTOLOGIST Discharge Instruction Condition Patient Condition: Good Diet Diet: Resume Regular Diet Activity/Restrictions Activity: Normal Activity May Shower Restrictions: No Exercising No Lifting No Driving No Sexual Activity Nothing in the Vagina No [place] No Tampons, douche Follow-up Follow-up with Physician: 6, Week/Weeks Return to clinic for CRYSTAL GROWER Instructions: Fever greater than 101 Chills Worsening abdominal pain Excessive Vaginal Bleeding More than 2 pads per hour Unable to tolerate diet OB Instructions: Breast Tenderness Depression Blurried Vision Headache Surgical Instructions: Incisional Drainage Incisional Redness MAX SHAH MD Apr 16, 2017 11:15
--- NOTE | 2017-04-16 11:15 | PD.PPDC ---
LODGING HOUSE KEEPER Discharge Instruction Condition Patient Condition: Good Diet Diet: Resume Regular Diet Activity/Restrictions Activity: Normal Activity May Shower Restrictions: No Exercising No Lifting No Driving No Sexual Activity Nothing in the Vagina No [place] No Tampons, douche Follow-up Follow-up with Physician: 6, Week/Weeks Return to clinic for ONCOLOGY PHYSICIAN Instructions: Fever greater than 101 Chills Worsening abdominal pain Excessive Vaginal Bleeding More than 2 pads per hour Unable to tolerate diet OB Instructions: Breast Tenderness Depression Blurried Vision Headache Surgical Instructions: Incisional Drainage Incisional Redness MAX SHAH MD Apr 16, 2017 11:15
--- NOTE | 2017-04-16 11:17 | DS ---
Date/Time of Note Date/Time of Note DATE: 04/16/17 TIME: 11:16 Obstetrical Discharge Record Final Diagnosis Final Diagnosis: Term delivered Vaginal Delivery Obstetrical Delivery: Spontaneous Complications Preg induced Hypertension Augmentation: No Induction: Yes Condition on Discharge Physical Assessment Voiding: Yes Bowel Movement: Yes Breast: Soft, non-tender, Filling Fundus: Firm Calf Tenderness: No Patient Condition: Good MAX SHAH MD Apr 16, 2017 11:17
[2017-04-16] MEDS ORDERED: INFLUENZA VIRUS VACCINE 0.5 ML SYG IM* ONE (12:00)
[2017-04-16 16:00] VITALS: BP 101/55; PULSE 69; RESP 16
== END 2017-04-16 17:20 | disposition home or self-care (01) | DRG 775 ==
LOC: L-D 08:43 → PP1 04-15 00:33
PROVIDERS: ADMIT Obstetrics & Gynecology; ATTEND Obstetrics & Gynecology
PROC: 3E0P3VZ Introduction of Hormone into Female Reproductive, Percutaneous Approach (ICD-10-PCS; 2017-04-14)
PROC: 10E0XZZ Delivery of Products of Conception, External Approach (ICD-10-PCS; principal; 2017-04-14 08:00)
DX: O14.94 Unspecified pre-eclampsia, complicating childbirth (principal); Z37.0 Single live birth; Z3A.38 38 weeks gestation of pregnancy
CPT/HCPCS: 62319; 80053; 81001; 83036; 84560; 85025; 85610; 85730; 86592; 86850; 86885; 86900; 86901; 87340; 90715; 90716; 99464; J0290; J0595; J2590; J2790; J3010; J7120; J7121